=== PATIENT | male | born 1945 | race Caucasian/White ===

== ENCOUNTER 2018-05-29 10:52 | Emergency (ER) | payer MEDICARE, BC, OTHER | END 2018-05-29 13:48 | disposition home or self-care (01) | LOC: M ED 10:52 | DX: S86.811A Strain of other muscle(s) and tendon(s) at lower leg level, right leg, initial encounter (principal); X58.XXXA Exposure to other specified factors, initial encounter; Y92.9 Unspecified place or not applicable; Y93.9 Activity, unspecified; Y99.9 Unspecified external cause status; M71.21 Synovial cyst of popliteal space [Baker], right knee; R01.1 Cardiac murmur, unspecified; E78.5 Hyperlipidemia, unspecified; K21.9 Gastro-esophageal reflux disease without esophagitis; Z79.899 Other long term (current) drug therapy | CPT/HCPCS: 93971 ==

== ENCOUNTER → 2020-10-30 | Outpatient (CLI) | payer MEDICARE, BC, OTHER ==
[~2020-10-30] MED LIST: DORZ2OPD; LATANOPROST; OMEP1CAP73; SIMV10TA21
[2020-10-30 14:19] LABS: BASO # 0.1 10^3/uL (0.0-0.2); BASO % 0.7 % (0.0-1.0); EOS # 0.2 10^3/uL (0.0-0.5); HEMATOCRIT 46.8 % (42.0-52.0); HEMOGLOBIN 15.2 g/dl (13.5-17.5); LYMPH # 1.6 10^3/uL (1.5-5.0); LYMPH % 21.1 % (24.0-44.0); MEAN CORPUSCULAR HEMOGLOBIN 30.3 pg (27.0-33.0); MEAN CORPUSCULAR HGB CONC 32.5 g/dl (32.0-36.5); MEAN CORPUSCULAR VOLUME 93.2 fl (80.0-96.0); MONO # 0.6 10^3/uL (0.0-0.8); MONO % 7.7 % (2.0-8.0); NEUTROPHILS # 5.1 10^3/uL (1.5-8.5); NEUTROPHILS % 68.2 % (36.0-66.0); PLATELET COUNT, AUTOMATED 341 10^3/uL (150-450); RED BLOOD COUNT 5.02 10^6/uL (4.30-6.10); WHITE BLOOD COUNT 7.5 10^3/uL (4.0-10.0)
[2020-10-30 14:52] LABS: RHEUMATOID FACTOR QUANT < 10.0 IU/ML (<15.0)
[2020-10-30 14:56] LABS: ERYTHROCYTE SEDIMENTATION RATE 7 mm/hr (0-20)
[2020-10-31 15:07] LABS: ANTINUCLEAR ANTIBODIES DIRECT Negative (Negative); Lyme Disease IgG/IgM Antibodie <0.91 ISR (0.00-0.90); Lyme Disease IgM Ab Quantitati <0.80 index (0.00-0.79)
== END ==
LOC: M WUC 09:02
PROVIDERS: ATTEND Orthopaedic Surgery
DX: M25.532 Pain in left wrist (principal)

== ENCOUNTER → 2020-11-14 | Outpatient (CLI) | payer MEDICARE, BC, OTHER ==
--- NOTE | 2020-11-14 12:50 | REP ---
INDICATION: UNILATERAL PRIMARY OSTEOARTHRITIS, UNSPECIFIED KNEE COMPARISON: 04/16/2009. TECHNIQUE: Three views bilateral shoulders. FINDINGS: There is no evidence of acute fracture, dislocation, or intrinsic bone disease.Bilateral degenerative changes have mildly progressed since the prior study. On the right there is mild glenohumeral joint space narrowing, subchondral sclerosis and spurring. There is moderate narrowing of the acromioclavicular joint with mild spurring. On the left there is mild spurring at the acromioclavicular joint. There is mild narrowing, spurring and subchondral sclerosis and cystic change at the glenohumeral joint. Diffuse subchondral cystic change is seen in the humeral head. IMPRESSION: No fracture or dislocation. Bilateral degenerative changes have mildly progressed since prior study of 04/16/2009. <Electronically signed by Gautam Ragland > 11/14/20 [id number]
--- NOTE | 2020-11-14 12:51 | REP ---
INDICATION: UNILATERAL PRIMARY OSTEOARTHRITIS, UNSPECIFIED KNE. COMPARISON: None. TECHNIQUE: Bilateral hand series: 8 views total. FINDINGS: Four views of the right hand demonstrate mild diffuse osteopenia. There is soft tissue swelling at the PIP and DIP joints of the index finger and long finger. Osteoarthritic spurring is seen at the DIP joints of the index and long finger and to a lesser extent the small finger DIP. There is also early osteoarthritic spurring at the 1st MCP joint and the IP joint of the thumb on the right.. There is subcortical cyst formation in the distal ends of the 2nd through 5th metacarpals. Four views of the left hand demonstrate mild diffuse osteopenia. Subcortical cyst formation is seen in the distal ends of the 2nd 3rd and 4th metacarpal. No vera erosive changes. There is mild spurring at the DIP joints of the index and long and small finger. IP joint spurring is seen at the thumb. There is mild osteoarthritic spurring at the 1st MCP joint. Soft tissue fullness is seen at the DIP and PIP joints of the index finger. . IMPRESSION: Osteoarthritic changes as noted above.. <Electronically signed by Mango Duenas > 11/14/20 [id number]
--- NOTE | 2020-11-14 12:54 | REP ---
INDICATION: UNILATERAL PRIMARY OSTEOARTHRITIS, UNSPECIFIED KNEE COMPARISON: None. TECHNIQUE: Five views bilateral knees. FINDINGS: There is no evidence of acute fracture, dislocation, or intrinsic bone disease.On the right there is mild medial joint space narrowing and subchondral sclerosis. There is mild spurring of the medial and lateral patellar facets with mild patellofemoral compartment narrowing and subchondral sclerosis. There is no radiographic evidence of a significant joint effusion. There are mild vascular calcifications posterior to the distal femur. On the left there is mild spurring of the lateral patellar facet. There is mild narrowing and subchondral sclerosis of the patellofemoral joint. There is no radiographic evidence of a significant joint effusion. IMPRESSION: No fracture or dislocation. Bilateral arthritic changes as above. <Electronically signed by Gautam Ragland > 11/14/20 [id number]
== END ==
LOC: M RAD 11:49
PROVIDERS: ATTEND Internal Medicine
DX: M19.011 Primary osteoarthritis, right shoulder (principal); M19.012 Primary osteoarthritis, left shoulder; M17.0 Bilateral primary osteoarthritis of knee; M19.041 Primary osteoarthritis, right hand; M19.042 Primary osteoarthritis, left hand; M85.841 Other specified disorders of bone density and structure, right hand; M85.842 Other specified disorders of bone density and structure, left hand; M06.4 Inflammatory polyarthropathy; Z79.899 Other long term (current) drug therapy
CPT/HCPCS: 73030; 73130; 73564; 80048; 80076; 82306; 82550; 84165; 85025; 85652; 86140; 86200; G0463

== ENCOUNTER → 2020-11-14 | Outpatient (REF) | payer MEDICARE, OTHER ==
[2020-11-14 17:16] LABS: BASO # 0.1 10^3/uL (0.0-0.2); BASO % 0.8 % (0.0-1.0); EOS # 0.1 10^3/uL (0.0-0.5); EOS % 1.8 % (0.0-3.0); HEMATOCRIT 47.7 % (42.0-52.0); HEMOGLOBIN 15.9 g/dl (13.5-17.5); LYMPH # 1.6 10^3/uL (1.5-5.0); LYMPH % 21.5 % (24.0-44.0); MEAN CORPUSCULAR HEMOGLOBIN 31.1 pg (27.0-33.0); MEAN CORPUSCULAR HGB CONC 33.3 g/dl (32.0-36.5); MEAN CORPUSCULAR VOLUME 93.2 fl (80.0-96.0); MONO # 0.5 10^3/uL (0.0-0.8); MONO % 6.9 % (2.0-8.0); NEUTROPHILS # 5.1 10^3/uL (1.5-8.5); NEUTROPHILS % 68.7 % (36.0-66.0); PLATELET COUNT, AUTOMATED 322 10^3/uL (150-450); RED BLOOD COUNT 5.12 10^6/uL (4.30-6.10); WHITE BLOOD COUNT 7.4 10^3/uL (4.0-10.0)
[2020-11-14 17:45] LABS: ALBUMIN 4.3 GM/DL (3.2-5.2); ALT/SGPT 29 U/L (12-78); BILIRUBIN,DIRECT 0.2 MG/DL (0.0-0.2); BILIRUBIN,TOTAL 0.5 MG/DL (0.2-1.0); BLOOD UREA NITROGEN 15 MG/DL (7-18); C REACTIVE PROTEIN QUANTITATIV 0.48 MG/DL (0.00-0.30); CALCIUM LEVEL 9.8 MG/DL (8.8-10.2); CARBON DIOXIDE LEVEL 27 MEQ/L (21-32); CHLORIDE LEVEL 106 MEQ/L (98-107); CPK CREATINE PHOSPHOKINASE 193 U/L (39-308); CREATININE FOR GFR 0.81 MG/DL (0.70-1.30); GLOMERULAR FILTRATION RATE > 60.0 (>42); GLUCOSE, FASTING 92 MG/DL (70-100); POTASSIUM SERUM 4.4 MEQ/L (3.5-5.1); SODIUM LEVEL 140 MEQ/L (136-145); TOTAL PROTEIN 7.6 GM/DL (6.4-8.2)
[2020-11-14 17:47] LABS: TOTAL 25(OH) VITAMIN D 32.8 NG/ML (30.0-100.0)
[2020-11-14 17:53] LABS: ERYTHROCYTE SEDIMENTATION RATE 5 mm/hr (0-20)
[2020-11-18 13:17] LABS: ALBUMIN % 60.2 % (55.8-66.1); ALPHA-1-GLOBULIN % 4.2 % (2.9-4.9); ALPHA-2-GLOBULINS % 12.1 % (7.1-11.8)
[2020-11-18 13:18] LABS: ALBUMIN 4.58 GM/DL (3.29-5.55); ALPHA-1-GLOBULINS 0.32 GM/DL (0.17-0.41); ALPHA-2-GLOBULINS 0.92 GM/DL (0.42-0.99); BETA-1-GLOBULINS 0.41 GM/DL (0.28-0.60); BETA-1-GLOBULINS % 5.4 % (4.7-7.2); BETA-2-GLOBULINS 0.41 GM/DL (0.19-0.55); BETA-2-GLOBULINS % 5.4 % (3.2-6.5); GAMMA GLOBULIN % 12.7 % (11.1-18.8); GAMMA GLOBULINS 0.97 GM/DL (0.65-1.58)
== END ==
LOC: M SFHCRHEU 10:10
PROVIDERS: ATTEND Internal Medicine
DX: M06.4 Inflammatory polyarthropathy (principal); Z79.899 Other long term (current) drug therapy

== ENCOUNTER → 2020-11-25 | Outpatient (REF) | payer MEDICARE, OTHER | LOC: M SFHCRHEU 11:01 | PROVIDERS: ATTEND Internal Medicine | DX: M35.3 Polymyalgia rheumatica (principal) | CPT/HCPCS: 86140; G0463 ==

== ENCOUNTER → 2020-12-29 | Outpatient (CLI) | payer MEDICARE, OTHER | LOC: M WUC 09:43 | PROVIDERS: ATTEND Internal Medicine | DX: M35.3 Polymyalgia rheumatica (principal) ==

== ENCOUNTER → 2021-02-13 | Outpatient (REF) | payer MEDICARE, OTHER | LOC: M LABWUC 15:48 | PROVIDERS: ATTEND Internal Medicine | DX: M35.3 Polymyalgia rheumatica (principal) ==

== ENCOUNTER → 2021-03-17 | Outpatient (REF) | payer MEDICARE, OTHER | LOC: M WUC 16:08 | PROVIDERS: ATTEND Internal Medicine | DX: M35.3 Polymyalgia rheumatica (principal) ==

== ENCOUNTER → 2021-04-17 | Outpatient (CLI) | payer MEDICARE, OTHER | LOC: M WUC 14:21 | PROVIDERS: ATTEND Internal Medicine | DX: M35.3 Polymyalgia rheumatica (principal) ==

== ENCOUNTER → 2021-05-12 | Outpatient (CLI) | payer MEDICARE, BC, OTHER | LOC: M WUC 11:21 | PROVIDERS: ATTEND Internal Medicine | DX: M35.3 Polymyalgia rheumatica (principal); M85.88 Other specified disorders of bone density and structure, other site; Z79.52 Long term (current) use of systemic steroids ==

== ENCOUNTER → 2021-05-12 | Outpatient (CLI) | payer MEDICARE, BC, OTHER ==
--- NOTE | 2021-05-12 12:41 | DEXAMM ---
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 COMPARISON: None. TECHNIQUE: Bone density was measured using dual-energy x-ray absorptiometry (DEXA). FINDINGS: AP SPINE L1-L4 BMD 1.274 g/cm2 Young Adult T-Score 0.6 Age Matched Z-Score 1.0. LT FEMUR, TOTAL BMD 0.949 g/cm2 Young Adult T-Score -0.5 Age Matched Z-Score 0.0. LT NECK BMD 0.825 g/cm2 Young Adult T-Score -1.5 Age Matched Z-Score -0.4. RT FEMUR, TOTAL BMD 0.923 g/cm2 Young Adult T-Score -0.7 Age Matched Z-Score -0.2. RT NECK BMD 0.807 g/cm2 Young Adult T-Score -1.7 Age Matched Z-Score -0.5. IMPRESSION: There is normal bone density of the spine. There is low bone density of the left hip. There is low bone density of the right hip. FOLLOW-UP: Recommendation for the next bone density exam: 2 years. <Electronically signed by Gautam Ragland > 05/12/21 [id number]
== END ==
LOC: M WHC 10:19
PROVIDERS: ATTEND Internal Medicine
DX: M85.88 Other specified disorders of bone density and structure, other site (principal); Z79.52 Long term (current) use of systemic steroids

== ENCOUNTER → 2021-06-16 | Outpatient (CLI) | payer MEDICARE, BC, OTHER | LOC: M WUC 11:05 | PROVIDERS: ATTEND Internal Medicine | DX: M35.3 Polymyalgia rheumatica (principal) ==

== ENCOUNTER → 2021-10-28 | Outpatient (REF) | payer MEDICARE, OTHER | LOC: M SFHCRHEU 10:54 | PROVIDERS: ATTEND Internal Medicine | DX: M35.3 Polymyalgia rheumatica (principal) ==

== ENCOUNTER → 2022-06-07 | Outpatient (CLI) | payer MEDICARE, OTHER ==
[2022-06-07 16:40] LABS: BASO # 0.1 10^3/uL (0.0-0.2); BASO % 0.9 % (0.0-1.0); EOS # 0.1 10^3/uL (0.0-0.5); EOS % 1.8 % (0.0-3.0); HEMATOCRIT 46.8 % (42.0-52.0); HEMOGLOBIN 15.9 g/dl (13.5-17.5); LYMPH # 1.9 10^3/uL (1.5-5.0); MEAN CORPUSCULAR HEMOGLOBIN 32.3 pg (27.0-33.0); MEAN CORPUSCULAR VOLUME 94.9 fl (80.0-96.0); MONO # 0.4 10^3/uL (0.0-0.8); MONO % 6.3 % (2.0-8.0); NEUTROPHILS # 4.2 10^3/uL (1.5-8.5); NEUTROPHILS % 61.9 % (36.0-66.0); PLATELET COUNT, AUTOMATED 298 10^3/uL (150-450); RED BLOOD COUNT 4.93 10^6/uL (4.30-6.10); WHITE BLOOD COUNT 6.7 10^3/uL (4.0-10.0)
[2022-06-07 17:05] LABS: ALBUMIN 4.3 G/DL (3.2-5.2); ALT/SGPT 28 U/L (7.0-40); BILIRUBIN,TOTAL 0.7 MG/DL (0.3-1.2); BLOOD UREA NITROGEN 17 MG/DL (9-23); CALCIUM LEVEL 8.9 MG/DL (8.3-10.6); CARBON DIOXIDE LEVEL 27 MMOL/L (20-31); CHLORIDE LEVEL 104 MMOL/L (98-107); CHOLESTEROL LEVEL 145 MG/DL (<200); CHOLESTEROL RISK RATIO 3.67 (<5); CREATININE FOR GFR 0.87 MG/DL (0.70-1.30); GLOMERULAR FILTRATION RATE > 60.0 (>42); GLUCOSE, FASTING 96 MG/DL (74-106); HDL CHOLESTEROL 39.5 MG/DL (>40); LDL CHOLESTEROL 82.1 MG/DL (<100); NON-HDL-C 106 MG/DL; POTASSIUM SERUM 4.1 MMOL/L (3.5-5.1); SODIUM LEVEL 141 MMOL/L (136-145); TOTAL PROTEIN 6.9 G/DL (5.7-8.2); TRIGLYCERIDES LEVEL 117 MG/DL (<150)
== END ==
LOC: M WUC 11:43
PROVIDERS: ATTEND Internal Medicine
DX: E78.5 Hyperlipidemia, unspecified (principal); I10 Essential (primary) hypertension; K21.9 Gastro-esophageal reflux disease without esophagitis

== ENCOUNTER → 2022-11-15 | Outpatient (CLI) | payer MEDICARE, OTHER ==
[2022-11-15 13:08] LABS: ALBUMIN 3.8 G/DL (3.2-5.2); ALKALINE PHOSPHATASE 65 U/L (46-116); ALT/SGPT 29 U/L (7.0-40); AST/SGOT 26 U/L (<34); BILIRUBIN,TOTAL 0.5 MG/DL (0.3-1.2); BLOOD UREA NITROGEN 16 MG/DL (9-23); CALCIUM LEVEL 9.3 MG/DL (8.3-10.6); CARBON DIOXIDE LEVEL 28 MMOL/L (20-31); CHLORIDE LEVEL 108 MMOL/L (98-107); CHOLESTEROL LEVEL 138 MG/DL (<200); CHOLESTEROL RISK RATIO 3.14 (<5); CREATININE FOR GFR 0.81 MG/DL (0.70-1.30); GLOMERULAR FILTRATION RATE > 60.0 (>42); GLUCOSE, FASTING 102 MG/DL (74-106); HDL CHOLESTEROL 43.9 MG/DL (>40); LDL CHOLESTEROL 76.3 MG/DL (<100); NON-HDL-C 94.1 MG/DL; POTASSIUM SERUM 4.7 MMOL/L (3.5-5.1); SODIUM LEVEL 140 MMOL/L (136-145); TOTAL PROTEIN 6.6 G/DL (5.7-8.2); TRIGLYCERIDES LEVEL 89 MG/DL (<150)
== END ==
LOC: M WUC 09:50
PROVIDERS: ATTEND Internal Medicine
DX: I10 Essential (primary) hypertension (principal); E78.5 Hyperlipidemia, unspecified; L40.59 Other psoriatic arthropathy

== ENCOUNTER → 2023-05-17 | Outpatient (CLI) | payer MEDICARE, OTHER ==
[2023-05-17 14:36] LABS: ALBUMIN 3.8 G/DL (3.2-5.2); ALKALINE PHOSPHATASE 65 U/L (46-116); ALT/SGPT 25 U/L (7.0-40); AST/SGOT 24 U/L (<34); BILIRUBIN,TOTAL 0.5 MG/DL (0.3-1.2); BLOOD UREA NITROGEN 21 MG/DL (9-23); CALCIUM LEVEL 9.1 MG/DL (8.3-10.6); CARBON DIOXIDE LEVEL 26 MMOL/L (20-31); CHLORIDE LEVEL 105 MMOL/L (98-107); CHOLESTEROL LEVEL 153 MG/DL (<200); CHOLESTEROL RISK RATIO 3.66 (<5); CREATININE FOR GFR 0.83 MG/DL (0.70-1.30); GLOMERULAR FILTRATION RATE > 60.0 (>35); GLUCOSE, FASTING 102 MG/DL (74-106); HDL CHOLESTEROL 41.8 MG/DL (>40); LDL CHOLESTEROL 91.2 MG/DL (<100); NON-HDL-C 111.2 MG/DL; POTASSIUM SERUM 4.2 MMOL/L (3.5-5.1); SODIUM LEVEL 140 MMOL/L (136-145); TOTAL PROTEIN 6.4 G/DL (5.7-8.2); TRIGLYCERIDES LEVEL 100 MG/DL (<150)
== END ==
LOC: M WUC 10:05
PROVIDERS: ATTEND Internal Medicine
DX: E78.5 Hyperlipidemia, unspecified (principal); K21.9 Gastro-esophageal reflux disease without esophagitis; I10 Essential (primary) hypertension

== ENCOUNTER → 2023-11-15 | Outpatient (REF) | payer MEDICARE, OTHER ==
[2023-11-15 14:24] LABS: ALBUMIN 3.5 G/DL (3.2-5.2); ALKALINE PHOSPHATASE 58 U/L (46-116); ALT/SGPT 24 U/L (7.0-40); AST/SGOT 24 U/L (<34); BILIRUBIN,TOTAL 0.7 MG/DL (0.3-1.2); BLOOD UREA NITROGEN 26 MG/DL (9-23); CARBON DIOXIDE LEVEL 26 MMOL/L (20-31); CHLORIDE LEVEL 109 MMOL/L (98-107); CHOLESTEROL LEVEL 146 MG/DL (<200); CHOLESTEROL RISK RATIO 3.54 (<5); CREATININE FOR GFR 0.99 MG/DL (0.70-1.30); GLOMERULAR FILTRATION RATE > 60.0 (>35); GLUCOSE, FASTING 92 MG/DL (74-106); HDL CHOLESTEROL 41.2 MG/DL (>40); LDL CHOLESTEROL 89.2 MG/DL (<100); NON-HDL-C 104.8 MG/DL; POTASSIUM SERUM 4.3 MMOL/L (3.5-5.1); SODIUM LEVEL 143 MMOL/L (136-145); TOTAL PROTEIN 6.3 G/DL (5.7-8.2); TRIGLYCERIDES LEVEL 78 MG/DL (<150)
== END ==
LOC: M LABWUC 12:03
PROVIDERS: ATTEND Internal Medicine
DX: E78.5 Hyperlipidemia, unspecified (principal); K21.9 Gastro-esophageal reflux disease without esophagitis; I10 Essential (primary) hypertension

== ENCOUNTER → 2024-05-24 | Outpatient (CLI) | payer MEDICARE, OTHER ==
[2024-05-24 12:07] LABS: ALBUMIN 3.9 G/DL (3.2-5.2); ALKALINE PHOSPHATASE 63 U/L (40-129); ALT/SGPT 34 U/L (7.0-40); AST/SGOT 23 U/L (<34); BILIRUBIN,TOTAL 0.7 MG/DL (0.3-1.2); BLOOD UREA NITROGEN 20 MG/DL (9-23); CARBON DIOXIDE LEVEL 28 MMOL/L (20-31); CHLORIDE LEVEL 107 MMOL/L (98-107); CHOLESTEROL LEVEL 192 MG/DL (<200); CHOLESTEROL RISK RATIO 4.83 (<5); CREATININE FOR GFR 0.92 MG/DL (0.70-1.30); GLOMERULAR FILTRATION RATE > 60.0 (>35); GLUCOSE, FASTING 100 MG/DL (74-106); HDL CHOLESTEROL 39.7 MG/DL (>40); LDL CHOLESTEROL 116.9 MG/DL (<100); NON-HDL-C 152.3 MG/DL; POTASSIUM SERUM 4.5 MMOL/L (3.5-5.1); SODIUM LEVEL 141 MMOL/L (136-145); TOTAL PROTEIN 7.3 G/DL (5.7-8.2); TRIGLYCERIDES LEVEL 177 MG/DL (<150)
== END ==
LOC: M WUC 09:34
PROVIDERS: ATTEND Internal Medicine
DX: E78.5 Hyperlipidemia, unspecified (principal); K21.9 Gastro-esophageal reflux disease without esophagitis; I10 Essential (primary) hypertension

== ENCOUNTER → 2024-11-26 | Outpatient (CLI) | payer MEDICARE, OTHER ==
[2024-11-26 15:03] LABS: ALBUMIN 4.2 G/DL (3.2-5.2); BILIRUBIN,TOTAL 0.5 MG/DL (0.3-1.2); CALCIUM LEVEL 9.8 MG/DL (8.3-10.6); CHOLESTEROL RISK RATIO 3.62 (<5); CREATININE FOR GFR 0.93 MG/DL (0.70-1.30); GLOMERULAR FILTRATION RATE 82.5 (>35); HDL CHOLESTEROL 46.6 MG/DL (>40); NON-HDL-C 122.4 MG/DL; TOTAL PROTEIN 7.1 G/DL (5.7-8.2)
== END ==
LOC: M WUC 11:53
PROVIDERS: ATTEND Internal Medicine
DX: E78.5 Hyperlipidemia, unspecified (principal); K21.9 Gastro-esophageal reflux disease without esophagitis; I10 Essential (primary) hypertension

== ENCOUNTER → 2025-05-31 | Outpatient (CLI) | payer MEDICARE, OTHER ==
[2025-05-31 18:30] LABS: ALT/SGPT 29.0 U/L (7.0-40); AST/SGOT 28.0 U/L (<34); CALCIUM LEVEL 9.3 MG/DL (8.3-10.6); CARBON DIOXIDE LEVEL 26.0 MMOL/L (20-31); CHLORIDE LEVEL 105.0 MMOL/L (98-107); CHOLESTEROL LEVEL 171.0 MG/DL (<200); CHOLESTEROL RISK RATIO 4.02 (<5); CREATININE FOR GFR 1.0 MG/DL (0.70-1.30); GLOMERULAR FILTRATION RATE 75.1 (>35); LDL CHOLESTEROL 99.9 MG/DL (<100); NON-HDL-C 128.5 MG/DL; POTASSIUM SERUM 4.1 MMOL/L (3.5-5.1); SODIUM LEVEL 142.0 MMOL/L (136-145); TRIGLYCERIDES LEVEL 143.0 MG/DL (<150)
== END ==
LOC: M WUC 13:08
PROVIDERS: ATTEND Internal Medicine
DX: E78.5 Hyperlipidemia, unspecified (principal); K21.9 Gastro-esophageal reflux disease without esophagitis; I10 Essential (primary) hypertension; R73.01 Impaired fasting glucose